=== PATIENT | female | born 1975 | race Hispanic/Latino ===

== ENCOUNTER → 2017-07-06 | Outpatient (CLI) | payer MEDICAID ==
[~2017-07-06] MED LIST: AZIT200S47 PO; BIOT5000 PO; CHOL100053 PO; CYAN250010 PO; ESOM20CA31 PO; HYDR-4068 PO; MULT-1203 PO; SOTA160T PO; SOTA80TA PO; TAMO20TA4 PO
== END | disposition home or self-care (01) ==
LOC: SHCH 13:04
PROVIDERS: ATTEND Internal Medicine Cardiovascular Disease
DX: R93.1 Abnormal findings on diagnostic imaging of heart and coronary circulation (principal)
CPT/HCPCS: 93306

== ENCOUNTER 2017-07-19 06:00 | Observation (INO) | payer MEDICAID ==
[2017-07-17 14:17] VITALS: BP 108/60
[2017-07-17 14:23] LABS: BASOPHILS % (AUTO) 0.8 % (0.0-5.0); EOSINOPHILS % (AUTO) 1.2 % (0.0-8.0); HEMATOCRIT 36.7 % (36-48); LYMPHOCYTES % (AUTO) 17.6 % (21.0-51.0); MEAN CORPUSCULAR HEMOGLOBIN 32.7 pg (27.0-33.0); MEAN CORPUSCULAR HGB CONC 34.3 g/dL (32.0-36.0); MEAN CORPUSCULAR VOLUME 95.2 fL (79-99); MONOCYTES % (AUTO) 7.2 % (3.0-13.0); NEUTROPHILS % (AUTO) 73.2 % (40.0-77.0); NUCLEATED RED BLOOD CELLS 0.1 % (0.0-0.19); PLATELET COUNT (AUTO) 229 K/uL (130-400); RED BLOOD CELL COUNT(AUTO) 3.85 MIL/uL (4.00-5.50); RED CELL DISTRIBUTION WIDTH 14.2 % (11.0-15.5); WHITE BLOOD COUNT (AUTO) 3.9 K/uL (4.8-10.8)
[2017-07-17 14:34] LABS: INR 0.95 (0.85-1.15); PARTIAL THROMBOPLASTIN TIME 24.7 SEC (26.3-35.5)
[2017-07-17 15:02] LABS: CREATININE 0.7 mg/dL (0.5-1.5); POTASSIUM 3.9 mmol/L (3.5-5.1)
[2017-07-19] VITALS (10 sets, daily range): BP systolic 95–113; BP diastolic 45–63
[~2017-07-19] VITALS: Ht 162.6 cm; Wt 102.6 kg
[2017-07-19] MEDS ORDERED: SODIUM CHLORIDE 0.9% 1000ML 1,000 ML IV ONE (07:25)
[2017-07-19] MEDS ORDERED: LIDOCAINE HCL 2% 20ML ONE (12:53)
[2017-07-19] MEDS ORDERED: MIDAZOLAM HCL 1 MG/ML 2ML VIAL ONE ×5 (13:05→15:25)
[2017-07-19] MEDS ORDERED: MEPERIDINE-PF 50 MG/ML SYG ONE ×3 (13:05→15:25)
[2017-07-19] MEDS ORDERED: ISOPROTERENOL HCL 0.2 MG/ML AMP/VIAL/BAG ONE (14:19)
[2017-07-19] MEDS ORDERED: METOPROLOL TARTRATE 1 MG/ML 5ML VIAL IV ONE (15:41)
[2017-07-19] MEDS ORDERED: PROPRANOLOL HCL 20 MG TAB PO PRN (16:15)
[2017-07-19] MEDS ORDERED: PANTOPRAZOLE SODIUM 40 MG TABLET.DR PO ONE (20:11)
[2017-07-19] MEDS ORDERED: TAMOXIFEN CITRATE 10 MG TABLET PO SCH (21:00)
[2017-07-20 03:40] VITALS: BP 87/49
[2017-07-20] MEDS ORDERED: PANTOPRAZOLE SODIUM 40 MG TABLET.DR PO SCH (07:30)
[2017-07-20 08:00] VITALS: BP 97/53
[2017-07-20] MEDS ORDERED: AZITHROMYCIN 200 MG/ 5 ML BTL PO SCH ×2 (09:00)
[2017-07-20 12:29] VITALS: BP 97/63
== END 2017-07-20 14:45 | disposition home or self-care (01) ==
LOC: DAH 06:00 → 2AH 06:01 → DAH 06:01 → 2AH 23:04
PROVIDERS: ADMIT Internal Medicine; ATTEND Internal Medicine
DX: I47.1 Supraventricular tachycardia (principal); E11.9 Type 2 diabetes mellitus without complications; Z79.810 Long term (current) use of selective estrogen receptor modulators (SERMs); Z85.3 Personal history of malignant neoplasm of breast; Z98.84 Bariatric surgery status
CPT/HCPCS: 36415 ×2; 71045; 80048; 82948 ×3; 84439; 84443; 84480; 84703; 85025; 85610; 85730; 93005; 93613; 93621; 93623; 93653; A4649; C1730 ×4; C1732; C1894 ×5; G0378 ×33; J1644; J2175 ×3; J2250 ×5; J3490 ×3; J7030; 99152; 99153

== ENCOUNTER → 2017-11-05 | Outpatient (CLI) | payer MEDICAID ==
[~2017-11-05] MED LIST changes: -AZIT200S47 PO; -SOTA160T PO; -SOTA80TA PO
== END | disposition home or self-care (01) ==
LOC: SHCH 14:04
PROVIDERS: ATTEND Internal Medicine Cardiovascular Disease
DX: M79.604 Pain in right leg (principal); M79.605 Pain in left leg; R60.9 Edema, unspecified
CPT/HCPCS: 93970

== ENCOUNTER → 2018-06-06 | Outpatient (CLI) | payer MEDICAID | END | disposition home or self-care (01) | LOC: RAH 15:51 | PROVIDERS: ATTEND Physical Medicine & Rehabilitation | DX: M47.814 Spondylosis without myelopathy or radiculopathy, thoracic region (principal) | CPT/HCPCS: 72070 ==

== ENCOUNTER → 2018-10-15 | Outpatient (CLI) | payer MEDICAID | END | disposition home or self-care (01) | LOC: RAH 16:02 | PROVIDERS: ATTEND Physical Medicine & Rehabilitation | DX: M47.815 Spondylosis without myelopathy or radiculopathy, thoracolumbar region (principal); M41.85 Other forms of scoliosis, thoracolumbar region; M48.061 Spinal stenosis, lumbar region without neurogenic claudication | CPT/HCPCS: 72110 ==

== ENCOUNTER → 2019-06-13 | Outpatient (CLI) | payer MEDICAID | END | disposition home or self-care (01) | LOC: RAH 15:44 | PROVIDERS: ATTEND Physical Medicine & Rehabilitation | DX: M47.22 Other spondylosis with radiculopathy, cervical region (principal); M48.02 Spinal stenosis, cervical region; M25.78 Osteophyte, vertebrae | CPT/HCPCS: 72052 ==

== ENCOUNTER 2019-12-29 00:09 | Emergency (ER) | payer MEDICAID ==
[2019-12-29] MEDS ORDERED: PREDNISONE 10 MG TABLET ONE (00:50)
[2019-12-29] MEDS ORDERED: DIPHENHYDRAMINE HCL 25 MG CAPSULE ONE (00:51)
== END 2019-12-29 01:19 | disposition home or self-care (01) ==
LOC: EDH 00:09
DX: T63.481A Toxic effect of venom of other arthropod, accidental (unintentional), initial encounter (principal); R58 Hemorrhage, not elsewhere classified; S80.262A Insect bite (nonvenomous), left knee, initial encounter; E11.9 Type 2 diabetes mellitus without complications; K21.9 Gastro-esophageal reflux disease without esophagitis; Z90.49 Acquired absence of other specified parts of digestive tract; Z90.710 Acquired absence of both cervix and uterus; Y92.89 Other specified places as the place of occurrence of the external cause
CPT/HCPCS: 99283; J7512; Q0163

== ENCOUNTER → 2021-10-31 | Outpatient (CLI) | payer MEDICAID | END | disposition home or self-care (01) | LOC: SHCH 11:01 | PROVIDERS: ATTEND Internal Medicine Cardiovascular Disease | DX: R00.2 Palpitations (principal); I10 Essential (primary) hypertension; E66.9 Obesity, unspecified | CPT/HCPCS: 93306 ==

== ENCOUNTER → 2022-02-02 | Outpatient (CLI) | payer MEDICAID | END | disposition home or self-care (01) | LOC: SHCH 15:12 | PROVIDERS: ATTEND Internal Medicine Cardiovascular Disease | DX: I87.2 Venous insufficiency (chronic) (peripheral) (principal) | CPT/HCPCS: 93970 ==

== ENCOUNTER → 2022-02-28 | Outpatient (CLI) | payer MEDICAID ==
[2022-02-28 12:32] LABS: BASOPHILS % (AUTO) 0.9 % (0.0-5.0); EOSINOPHILS % (AUTO) 1.1 % (0.0-8.0); HEMATOCRIT 41.4 % (36-48); LYMPHOCYTES % (AUTO) 21.7 % (21.0-51.0); MEAN CORPUSCULAR HEMOGLOBIN 29.1 pg (27.0-33.0); MEAN CORPUSCULAR HGB CONC 30.9 g/dL (32.0-36.0); MEAN CORPUSCULAR VOLUME 94.1 fL (79-99); MONOCYTES % (AUTO) 16.3 % (3.0-13.0); NEUTROPHILS % (AUTO) 58.5 % (40.0-77.0); PLATELET COUNT (AUTO) 268 K/uL (130-400); RED CELL DISTRIBUTION WIDTH 13.9 % (11.0-15.5); WHITE BLOOD COUNT (AUTO) 4.7 K/uL (4.8-10.8)
[2022-02-28 12:49] LABS: INR 0.93 (0.85-1.15); PROTHROMBIN TIME 9.8 SEC (9.6-11.6)
[2022-02-28 12:50] LABS: PARTIAL THROMBOPLASTIN TIME 25.8 SEC (26.3-35.5)
[2022-02-28 12:54] LABS: ALBUMIN 3.4 g/dL (3.5-5.0); CREATININE 0.9 mg/dL (0.5-1.5); POTASSIUM 3.9 mmol/L (3.5-5.1); THYROID STIMULATING HORMONE 2.65 uIU/mL (0.36-3.74); TOTAL PROTEIN, SERUM 7.1 g/dL (6.0-8.3)
[2022-02-28 13:15] LABS: B-TYPE NATRIURETIC PEPTIDE 62 pg/mL (0-100)
== END | disposition home or self-care (01) ==
LOC: LAB 10:57
PROVIDERS: ATTEND Internal Medicine Cardiovascular Disease
DX: I10 Essential (primary) hypertension (principal); G90.9 Disorder of the autonomic nervous system, unspecified; I47.1 Supraventricular tachycardia; R06.09 Other forms of dyspnea
CPT/HCPCS: 36415; 80053; 83880; 84443; 85025; 85610; 85730

== ENCOUNTER 2022-10-17 20:01 | Emergency (ER) | payer MEDICAID, OTHER ==
[~2022-10-17] VITALS: Ht 165.1 cm; Wt 127.0 kg
[2022-10-17 20:32] VITALS: BP 145/83
[2022-10-17] MEDS ORDERED: CEFAZOLIN SODIUM 2 GM VIAL IVPB STA (20:41)
[2022-10-17] MEDS ORDERED: TETANUS/DIPHTHERIA TOXOID [ADULT] 0.5 ML VIAL IM ONE (21:00)
[2022-10-17] MEDS ORDERED: DIPH,PERTUSS(ACELL),TET VAC/PF 0.5 ML VIAL IM ONE (21:00)
[2022-10-17] MEDS: MORPHINE 2 MG SYG IVP ONE ×2 (22:03→22:09)
[2022-10-17] MEDS ORDERED: ACETAMINOPHEN 500 MG TABLET PO ONE (23:00)
[2022-10-17] MEDS ORDERED: IBUP-1493 PO (23:02)
[2022-10-17] MEDS ORDERED: CEPH500B PO (23:02)
[2022-10-17] MEDS ORDERED: BACITRACIN 1 EACH PACKET TP ONE (23:20)
[2022-10-17] MEDS ORDERED: IBUPROFEN 800 MG TAB PO ONE (23:30)
== END 2022-10-17 23:52 | disposition home or self-care (01) ==
LOC: EDH 20:01
DX: S81.812A Laceration without foreign body, left lower leg, initial encounter (principal); M25.572 Pain in left ankle and joints of left foot; E11.9 Type 2 diabetes mellitus without complications; I48.91 Unspecified atrial fibrillation; Z85.3 Personal history of malignant neoplasm of breast; X58.XXXA Exposure to other specified factors, initial encounter; Y93.01 Activity, walking, marching and hiking; Y92.89 Other specified places as the place of occurrence of the external cause; Y99.8 Other external cause status
CPT/HCPCS: 99284; 96365; 90714; 73600; 73501; 73590; 73564; 90471; 73562; J2270; J0690

== ENCOUNTER 2023-01-17 01:55 | Emergency (ER) | payer MEDICAID ==
[~2023-01-17] VITALS: Ht 162.6 cm; Wt 122.5 kg
[~2023-01-17 01:55] MED LIST changes: +AEC81 PO; +APIX5TAB PO; -BIOT5000 PO; -CHOL100053 PO; -CYAN250010 PO; -ESOM20CA31 PO; +FAMO20TA8 PO; -HYDR-4068 PO; +LEVO750T39 PO; +METO25 PO; -MULT-1203 PO; -TAMO20TA4 PO
[2023-01-17 02:19] LABS: BASOPHILS # (AUTO) 0.05 K/uL (0.00-0.20); BASOPHILS % (AUTO) 0.7 % (0.0-5.0); EOSINOPHILS # (AUTO) 0.09 K/uL (0.00-0.70); EOSINOPHILS % (AUTO) 1.2 % (0.0-8.0); HEMATOCRIT 39.9 % (36-48); IMMATURE GRANULOCYTE ABSOLUTE 0.07 K/uL (0-1); LYMPHOCYTES # (AUTO) 1.4 K/uL (1.0-4.8); LYMPHOCYTES % (AUTO) 19.7 % (21.0-51.0); MEAN CORPUSCULAR HEMOGLOBIN 30.3 pg (27.0-33.0); MEAN CORPUSCULAR HGB CONC 32.1 g/dL (32.0-36.0); MEAN CORPUSCULAR VOLUME 94.3 fL (79-99); MONOCYTES # (AUTO) 0.8 K/uL (0.1-1.0); MONOCYTES % (AUTO) 10.3 % (3.0-13.0); NEUTROPHILS # (AUTO) 4.9 K/uL (1.8-7.7); NEUTROPHILS % (AUTO) 67.1 % (40.0-77.0); PLATELET COUNT (AUTO) 301 K/uL (130-400); RED BLOOD CELL COUNT(AUTO) 4.23 MIL/uL (4.00-5.50); RED CELL DISTRIBUTION WIDTH 14.3 % (11.0-15.5); WHITE BLOOD COUNT (AUTO) 7.3 K/uL (4.8-10.8)
[2023-01-17 02:32] LABS: INR < 0.93 (0.85-1.15); POTASSIUM 3.7 mmol/L (3.5-5.1); PROTHROMBIN TIME 10.2 SEC (9.6-11.6)
[2023-01-17 02:33] LABS: PARTIAL THROMBOPLASTIN TIME 24.9 SEC (26.3-35.5)
[2023-01-17 02:37] LABS: ALBUMIN 3.3 g/dL (3.5-5.0); BILIRUBIN,TOTAL 0.5 mg/dL (0.2-1.0); MAGNESIUM 2.1 mg/dL (1.80-2.40); TOTAL PROTEIN, SERUM 7.1 g/dL (6.0-8.3)
[2023-01-17 02:42] LABS: B-TYPE NATRIURETIC PEPTIDE 59 pg/mL (0-100)
[2023-01-17] MEDS ORDERED: AMOX500C2 PO (06:31)
[2023-01-17] MEDS ORDERED: ROPI0.5T37 PO (06:31)
[2023-01-17 08:23] VITALS: BP 127/73; PULSE 75; RESP 18; O2SAT 98
[2023-01-17] MEDS ORDERED: FLUT16H NASAL (08:39)
[2023-01-17] MEDS ORDERED: MECL-160 PO (08:39)
== END 2023-01-17 09:31 | disposition home or self-care (01) ==
LOC: EDH 01:55
DX: R42 Dizziness and giddiness (principal); E66.9 Obesity, unspecified; K02.9 Dental caries, unspecified; G25.81 Restless legs syndrome; Z86.711 Personal history of pulmonary embolism; Z68.42 Body mass index [BMI] 45.0-49.9, adult
CPT/HCPCS: 36415; 70450; 71045; 80053; 83735; 83880; 84484; 85025; 85610; 85730; 93005

== ENCOUNTER 2023-02-27 07:15 | Emergency (ER) | payer MEDICAID ==
[~2023-02-27] VITALS: Ht 165.1 cm; Wt 124.7 kg
[~2023-02-27 07:15] MED LIST changes: +AMOX500C2 PO; +FLUT16H NASAL; +MECL-302 PO; +ROPI0.5T37 PO
[2023-02-27 07:44] LABS: BASOPHILS # (AUTO) 0.05 K/uL (0.00-0.20); BASOPHILS % (AUTO) 0.8 % (0.0-5.0); EOSINOPHILS # (AUTO) 0.04 K/uL (0.00-0.70); EOSINOPHILS % (AUTO) 0.6 % (0.0-8.0); HEMATOCRIT 42.2 % (36-48); IMMATURE GRANULOCYTE ABSOLUTE 0.12 K/uL (0-1); LYMPHOCYTES # (AUTO) 1.2 K/uL (1.0-4.8); LYMPHOCYTES % (AUTO) 18.2 % (21.0-51.0); MEAN CORPUSCULAR HEMOGLOBIN 29.3 pg (27.0-33.0); MEAN CORPUSCULAR HGB CONC 31.3 g/dL (32.0-36.0); MEAN CORPUSCULAR VOLUME 93.8 fL (79-99); MONOCYTES # (AUTO) 0.6 K/uL (0.1-1.0); MONOCYTES % (AUTO) 8.4 % (3.0-13.0); NEUTROPHILS # (AUTO) 4.6 K/uL (1.8-7.7); NEUTROPHILS % (AUTO) 70.2 % (40.0-77.0); PLATELET COUNT (AUTO) 270 K/uL (130-400); RED CELL DISTRIBUTION WIDTH 14.4 % (11.0-15.5); WHITE BLOOD COUNT (AUTO) 6.5 K/uL (4.8-10.8)
[2023-02-27 07:55] LABS: INR < 0.93 (0.85-1.15)
[2023-02-27 08:00] LABS: CREATININE 0.9 mg/dL (0.5-1.5); POTASSIUM 3.8 mmol/L (3.5-5.1)
[2023-02-27 08:06] LABS: ALBUMIN 3.3 g/dL (3.5-5.0); BILIRUBIN,TOTAL 0.4 mg/dL (0.2-1.0); TOTAL PROTEIN, SERUM 6.9 g/dL (6.0-8.3)
[2023-02-27 08:09] LABS: B-TYPE NATRIURETIC PEPTIDE 29 pg/mL (0-100)
[2023-02-27 10:51] VITALS: BP 128/65; PULSE 68; RESP 17; O2SAT 98
== END 2023-02-27 10:53 | disposition home or self-care (01) ==
LOC: EDH 07:15
DX: R00.2 Palpitations (principal); E11.9 Type 2 diabetes mellitus without complications; Z85.3 Personal history of malignant neoplasm of breast; Z88.8 Allergy status to other drugs, medicaments and biological substances; Z79.899 Other long term (current) drug therapy; Z90.710 Acquired absence of both cervix and uterus
CPT/HCPCS: 36415; 71045; 80053; 83880; 84484; 85025; 85610; 93005

== ENCOUNTER → 2023-03-05 | Outpatient (CLI) | payer MEDICAID | END | disposition home or self-care (01) | LOC: SHCH 14:12 | PROVIDERS: ATTEND Student in an Organized Health Care Education/Training Program | DX: I26.99 Other pulmonary embolism without acute cor pulmonale (principal); E11.9 Type 2 diabetes mellitus without complications | CPT/HCPCS: 93306 ==

== ENCOUNTER → 2023-03-07 | Outpatient (CLI) | payer MEDICAID ==
[2023-03-07 16:25] LABS: CREATININE 0.8 mg/dL (0.5-1.5); POTASSIUM 3.8 mmol/L (3.5-5.1)
== END | disposition home or self-care (01) ==
LOC: LAB 15:49
PROVIDERS: ATTEND Student in an Organized Health Care Education/Training Program
DX: I26.99 Other pulmonary embolism without acute cor pulmonale (principal)
CPT/HCPCS: 36415; 80048

== ENCOUNTER → 2023-04-16 | Outpatient (CLI) | payer MEDICAID ==
[2023-04-16 16:30] LABS: CREATININE 0.9 mg/dL (0.5-1.5); POTASSIUM 3.9 mmol/L (3.5-5.1)
== END | disposition home or self-care (01) ==
LOC: LAB 14:58
PROVIDERS: ATTEND Student in an Organized Health Care Education/Training Program
DX: I26.99 Other pulmonary embolism without acute cor pulmonale (principal)
CPT/HCPCS: 36415; 80048

== ENCOUNTER → 2023-04-23 | Outpatient (CLI) | payer MEDICAID ==
[~2023-04-23] MED LIST changes: +IOHEXOL 350 MG/ML 100ML INFUS..BTL IV ONE; +IOHEXOL-350 50ML VIAL IV ONE; +IOHEXOL-350 75 ML VIAL IV ONE
== END | disposition home or self-care (01) ==
LOC: RAH 03-14 12:45
PROVIDERS: ATTEND Student in an Organized Health Care Education/Training Program
DX: I06.9 Rheumatic aortic valve disease, unspecified (principal)
CPT/HCPCS: 71250; Q9967

== ENCOUNTER → 2023-05-29 | Outpatient (CLI) | payer MEDICAID ==
[~2023-05-29] MED LIST changes: -IOHEXOL 350 MG/ML 100ML INFUS..BTL IV ONE; -IOHEXOL-350 50ML VIAL IV ONE; -IOHEXOL-350 75 ML VIAL IV ONE
[2023-05-29 17:01] LABS: CREATININE 0.8 mg/dL (0.5-1.5); POTASSIUM 4.2 mmol/L (3.5-5.1)
== END | disposition home or self-care (01) ==
LOC: LAB 15:30
PROVIDERS: ATTEND Student in an Organized Health Care Education/Training Program
DX: I26.99 Other pulmonary embolism without acute cor pulmonale (principal)
CPT/HCPCS: 36415; 80048

== ENCOUNTER 2023-07-29 06:33 | Emergency (ER) | payer MEDICAID ==
[~2023-07-29] VITALS: Ht 162.6 cm; Wt 122.5 kg
[2023-07-29] MEDS: MORPHINE 4 MG SYG IVP ONE (07:00)
[2023-07-29 07:29] LABS: BASOPHILS # (AUTO) 0.05 K/uL (0.00-0.20); BASOPHILS % (AUTO) 0.7 % (0.0-5.0); EOSINOPHILS % (AUTO) 1.5 % (0.0-8.0); LYMPHOCYTES # (AUTO) 1.3 K/uL (1.0-4.8); LYMPHOCYTES % (AUTO) 18.9 % (21.0-51.0); MEAN CORPUSCULAR HEMOGLOBIN 28.5 pg (27.0-33.0); MEAN CORPUSCULAR HGB CONC 30.9 g/dL (32.0-36.0); MEAN CORPUSCULAR VOLUME 92.3 fL (79-99); MONOCYTES # (AUTO) 0.8 K/uL (0.1-1.0); MONOCYTES % (AUTO) 11.9 % (3.0-13.0); NEUTROPHILS # (AUTO) 4.5 K/uL (1.8-7.7); NEUTROPHILS % (AUTO) 65.5 % (40.0-77.0); PLATELET COUNT (AUTO) 258 K/uL (130-400); RED BLOOD CELL COUNT(AUTO) 3.79 MIL/uL (4.00-5.50); RED CELL DISTRIBUTION WIDTH 14.4 % (11.0-15.5); WHITE BLOOD COUNT (AUTO) 6.8 K/uL (4.8-10.8)
[2023-07-29 07:37] LABS: INR <= 0.93 (0.85-1.15); PROTHROMBIN TIME 10.4 SEC (9.6-11.6)
[2023-07-29 07:39] LABS: PARTIAL THROMBOPLASTIN TIME 28.2 SEC (26.3-35.5)
[2023-07-29 07:40] LABS: BILIRUBIN,TOTAL 0.7 mg/dL (0.2-1.0); POTASSIUM 3.9 mmol/L (3.5-5.1); TOTAL PROTEIN, SERUM 6.9 g/dL (6.0-8.3)
[2023-07-29] MEDS: DiphenhydrAMINE HCL 50 MG/ML VIAL IV ONE (07:46)
[2023-07-29] MEDS: 0.9%NACL 1000ML 1,000 ML IV SCH (07:46)
[2023-07-29] MEDS ORDERED: IOHEXOL 350 MG/ML 100ML INFUS..BTL IV ONE (07:56)
[2023-07-29] MEDS ORDERED: HYDR-4060 PO (10:07)
[2023-07-29] MEDS ORDERED: ACET160S2 PO (10:07)
[2023-07-29 10:10] VITALS: BP 138/76; PULSE 98; RESP 17; O2SAT 99
[2023-07-29] MEDS: TRAMADOL /APAP 37.5MG/325MG TAB PO ONE (10:23)
[2023-07-29] MEDS: BACITRACIN 1 EACH PACKET TP ONE (10:34)
== END 2023-07-29 10:20 | disposition home or self-care (01) ==
LOC: EDH 06:33
DX: S80.02XA Contusion of left knee, initial encounter (principal); S80.222A Blister (nonthermal), left knee, initial encounter; S80.221A Blister (nonthermal), right knee, initial encounter; E11.9 Type 2 diabetes mellitus without complications; I10 Essential (primary) hypertension; Z79.01 Long term (current) use of anticoagulants; Z79.82 Long term (current) use of aspirin; Z90.49 Acquired absence of other specified parts of digestive tract; Z90.710 Acquired absence of both cervix and uterus; W18.39XA Other fall on same level, initial encounter; Y93.89 Activity, other specified; Y92.89 Other specified places as the place of occurrence of the external cause; Y99.8 Other external cause status
CPT/HCPCS: 99285; 71260; 96374; 96361; 80053; 85025; 85610; 85730; 36415; 73562; 74177; J1200; J7030; Q9967

== ENCOUNTER 2024-01-06 00:15 | Emergency (ER) | payer MEDICAID ==
[~2024-01-06] VITALS: Ht 162.6 cm; Wt 127.0 kg
[~2024-01-06 00:15] MED LIST changes: +ACET160S2 PO; +HYDR-4060 PO
[2024-01-06] MEDS: TETRACAINE HCL 0.5% 4 ML OPHTH SOLN OP SCH (02:17)
[2024-01-06] MEDS: FLUORESCEIN SODIUM 1 STRIP STRIP OP SCH (02:17)
[2024-01-06 02:53] VITALS: BP 136/72; PULSE 84; RESP 17; O2SAT 99
[2024-01-06] MEDS: NA BORATE/BORIC AC/H2O/NACL 120 ML OPHTH IRRIG SOLN ONE (02:54)
== END 2024-01-06 03:04 | disposition home or self-care (01) ==
LOC: EDH 00:15
DX: T54.91XA Toxic effect of unspecified corrosive substance, accidental (unintentional), initial encounter (principal); H57.89 Other specified disorders of eye and adnexa; H53.8 Other visual disturbances; I10 Essential (primary) hypertension; E11.9 Type 2 diabetes mellitus without complications; Z86.718 Personal history of other venous thrombosis and embolism; Z88.8 Allergy status to other drugs, medicaments and biological substances; Z79.899 Other long term (current) drug therapy; Z79.2 Long term (current) use of antibiotics; Z79.82 Long term (current) use of aspirin; Z85.3 Personal history of malignant neoplasm of breast; Z90.710 Acquired absence of both cervix and uterus; Z90.49 Acquired absence of other specified parts of digestive tract; Z98.84 Bariatric surgery status; Y92.89 Other specified places as the place of occurrence of the external cause

== ENCOUNTER → 2024-08-21 | Outpatient (CLI) | payer MEDICAID ==
[~2024-08-21] MED LIST changes: -LEVO750T39 PO; +LEVO750T40 PO
[2024-08-21 16:39] LABS: HEMOGLOBIN A1C 5.5 % (4.0-6.0)
[2024-08-21 16:44] LABS: CREATININE 0.9 mg/dL (0.5-1.0); POTASSIUM 4.1 mmol/L (3.5-5.1)
== END | disposition home or self-care (01) ==
LOC: LAB 14:53
PROVIDERS: ATTEND Student in an Organized Health Care Education/Training Program
DX: I49.8 Other specified cardiac arrhythmias (principal); I26.99 Other pulmonary embolism without acute cor pulmonale; M71.50 Other bursitis, not elsewhere classified, unspecified site; R06.09 Other forms of dyspnea; Z79.899 Other long term (current) drug therapy
CPT/HCPCS: 36415; 80048; 80061; 83036